=== PATIENT | female | born 1950 | race Two or more races ===

== ENCOUNTER 2024-04-26 14:24 | Emergency (ER) | payer OTHER ==
[~2024-04-26] VITALS: Ht 160 cm; Wt 88.0 kg
[2024-04-26] MEDS ORDERED: SYNTHROID75 MCG PO (14:28)
[2024-04-26] MEDS ORDERED: IPRATROPIUM/ALBUTEROL SULFATE 3 ML AMPUL.NEB IH ONE ×2 (16:30→18:15)
[2024-04-26 17:29] LABS: HEMATOCRIT 39.9 % (36.0-45.00); HEMOGLOBIN 13.8 g/dL (12.0-15.00); MEAN CELL VOLUME 91.5 fL (80.00-100.00); MEAN CORPUSCULAR HEMOGLOBIN 31.6 pg (27.00-32.0); MEAN CORPUSCULAR HGB CONC 34.6 g/dl (32.0-36.0); PLATELET COUNT 228 K/uL (150-450); RED BLOOD COUNT 4.36 M/uL (4.00-6.00); RED CELL DISTRIBUTION WIDTH 13.2 % (11.5-14.5)
[2024-04-26 17:46] LABS: CALCIUM 9.6 mg/dL (8.5-10.1); CREATININE SERUM 0.9 mg/dL (0.55-1.02); GFR 61.37; POTASSIUM 4.06 mEq/L (3.5-5.1)
[2024-04-26] MEDS ORDERED: ALL DAY ALLERGY10 MG PO (19:10)
[2024-04-26] MEDS ORDERED: FLONASE ALLERG9.9 ML IH (19:10)
[2024-04-26] MEDS ORDERED: TUSICOF LIQUID120 ML PO (19:10)
[2024-04-26] MEDS ORDERED: SINGULAIR10 MG PO (19:10)
[2024-04-26] MEDS ORDERED: VENTOLIN HFA18 GM IH (19:11)
== END 2024-04-26 19:38 | disposition home or self-care (01) ==
LOC: ER 14:26
PROVIDERS: General Practice
DX: B34.9 Viral infection, unspecified (principal); J32.9 Chronic sinusitis, unspecified; R05.9 Cough, unspecified; Z20.822 Contact with and (suspected) exposure to COVID-19; E03.8 Other specified hypothyroidism; Z88.0 Allergy status to penicillin; Z88.1 Allergy status to other antibiotic agents